=== PATIENT | male | born 1985 | race Caucasian/White ===

== ENCOUNTER 2018-05-13 12:06 | Emergency (ER) | payer OTHER ==
[~2018-05-13] VITALS: Ht 177.8 cm; Wt 81.7 kg
[~2018-05-13 12:06] MED LIST: ACID REDUCER20 MG; ALBU90OI; DULO60; GABA600; Inderal40 MG; NAPR220; PREG150 PO; Percocet 5-3251 EACH PO; TRAZ150T57; VITAMIN D250000 UNIT
[2018-05-13] MEDS ORDERED: Percocet 10-321 EACH PO (13:50)
[2018-05-13] MEDS ORDERED: Naprosyn500 MG PO (13:50)
== END 2018-05-13 14:06 | disposition home or self-care (01) ==
LOC: ER 12:06
DX: S20.212A Contusion of left front wall of thorax, initial encounter (principal); E78.00 Pure hypercholesterolemia, unspecified; M79.7 Fibromyalgia; I10 Essential (primary) hypertension; Z88.2 Allergy status to sulfonamides; Z79.899 Other long term (current) drug therapy; Z88.8 Allergy status to other drugs, medicaments and biological substances; V89.2XXA Person injured in unspecified motor-vehicle accident, traffic, initial encounter
CPT/HCPCS: 71101; 73030; 99284-25